=== PATIENT | female | born 1960 | race Hispanic/Latino ===

== ENCOUNTER 2023-01-28 06:50 | Day surgery (SDC) | payer BC ==
[2023-01-26 08:57] LABS: Potassium 3.7 mEq/L (3.5-5.1)
--- NOTE | 2023-01-27 15:17 | EKG ---
Test Date: 2023-01-26 Test Time: 09:15:25 Account General Manager: [place] MEASUREMENT RESULTS: Intervals: Rate: 71 FL: 168 QRSD: 74 QT: 430 QTc: 467 [place]: P: 56 FL: 168 QRS: 51 T: 64 INTERPRETIVE STATEMENTS: Normal sinus rhythm Low voltage QRS Borderline ECG No previous ECG available for comparison Electronically Signed On 01-27-23 15:12:31 INFORMATION MANAGEMENT OFFICER by Partha Alford
[2023-01-28] MEDS ORDERED: NA CHLORIDE 0.9% 1,000 ML ONE ×2 (07:04→13:40)
[2023-01-28] MEDS ORDERED: HYDROMORPHONE HCL 1 MG/ML INJ ONE (08:49)
[2023-01-28] MEDS ORDERED: KETOROLAC 30 MG/ML INJ ONE (10:55)
[2023-01-28] MEDS ORDERED: LIDOCAINE 2% MPF 5 ML VIAL ONE (10:55)
[2023-01-28] MEDS ORDERED: ONDANSETRON 4 MG/2 ML VIAL ONE ×2 (10:55→14:02)
[2023-01-28] MEDS ORDERED: propofoL 200 MG/20 ML VIAL IV ONE (10:55)
[2023-01-28] MEDS ORDERED: FENTANYL CITR 100 MCG/2 ML ONE (10:56)
[2023-01-28] MEDS ORDERED: MIDAZOLAM HCL 2 MG/2 ML INJ ONE (10:56)
[2023-01-28] MEDS: BUPIVACAINE 0.25% PF 30 ML VIAL ONE ×2 (10:58→11:40)
[2023-01-28] MEDS: CEFAZOLIN SODIUM 2 GM/VIAL ONE ×2 (10:58→11:25)
[2023-01-28] MEDS ORDERED: METHYLENE BLUE 1% 10 ML VIAL ONE (11:05)
--- NOTE | 2023-01-28 13:22 | P.OP ---
Preoperative diagnosis: RIGHT Breast Mass Postoperative diagnosis: RIGHT Breast Mass Primary procedure: Needle Localized RIGHT Breast Lumpectomy Anesthesia: GETA + Local Estimated blood loss: 20cc Specimen: Breast mass with wire, additional margins x 3 Findings: Clip not in specimen, wire taken out intact with rim of tissue Complications: None Transferred to: Recovery Room Condition: Good
[2023-01-28] MEDS: HYDROMORPHONE HCL 1 MG/ML INJ ONE ×2 (13:40→13:45)
[2023-01-28] MEDS ORDERED: DIPHENHYDRAMINE 50 MG/ML VIAL ONE (14:23)
--- NOTE | 2023-01-28 15:16 | OP ---
Date of Procedure: 01/28/2023 Surgeon: Fransisco Burrows MD, Preoperative Diagnosis: Right breast mass. Postoperative Diagnosis: Right breast mass. Procedure Performed: Needle localized right breast lumpectomy. Anesthesia: General endotracheal plus local, 0.25% Marcaine. Estimated Blood Loss: 20 cc. Specimen: Breast mass with wire. Additional margins specimen x3. Findings: Clip not seen in specimen, wire taken out with intact rim of tissue that did not contain s pecimen. Additional margins did not have specimen clip present. Complications: None immediate. Patient transferred to Recovery room in good condition. Brief History Of Present Illness: Patient is a 62-year-old woman, who had a history of a 1.1 cm mass at the 8 o'clock position 3 cm from the nipple in the right breast determined by ultrasound and radi ology. She had a biopsy performed, which did not show any malignancy evident at that point. It was read as BI-RADS 3 on the initial reports. The patient's impression was officially mass in the right breast is probably benign on the prior to any biopsies being performed of the area. She had an addit ional update imaging, which was officially read as upon further review, stable mass in left breast is benign and tissue was read as BI-RADS category 2 benign on 08/11/2021. Patient continued to have wo rry and concern over this lesion and requested its excision due to the possibility of malignancy. I had reiterated that there is no evidence of malignancy and that a routine followup was recommended; h owever, the patient continued to have great concerns and felt that she could not feel comfortable whi le she had this mass in her breast and therefore, requested surgical excision of this for definitive diagnosis as well. She additionally stated that she understood the risks of the procedure could invo lve deformity of the breast and other possible issues with the breast. Even understands this is in f act a benign lesion. She ultimately had a fiducial marker placed at an outside facility. As such, I have ordered the patient to have a needle localized lumpectomy/partial mastectomy of this lesion. T herefore, our radiologist, Dr. Kelly placed a needle into the breast, which was described as 0.5 cm bey ond the fiducial marker clip placed by the radiologist at the outside facility. As such, the patient was seen, talked to in preop area, and prepared for surgery. She understood the risks, benefits, an d alternatives and agreed to proceed. Procedure In Detail: After informed consent was obtained, patient was prepped and draped in the usua l sterile fashion. After adequate anesthesia was achieved, I made a linear incision on the right adalgisa ast at approximately 8 o'clock position, where a wire was evident including a small ellipse of skin a round this lesion for approximately 2.5 cm in size. I then dissected down in the subcutaneous plane. I then performed a conical enlarging incision as I went down to the chest wall including the wire a nd its distal aspect. I took it out with a rim of tissue and wire manipulation was minimal at this p oint. I extended it all the way to the level of approximately 0.5 cm beyond the clip and wire. I th en placed marking suture short superior, long lateral on the specimen and inked the deep margin and s ent it to Faxitron for examination by the Radiology Department to ensure the fiducial marker was pres ent. Upon discussion with the radiologist, the fiducial marker was not seen and I assume that perhap s there may be a malpositioning of the wire at the time of placement. Therefore, I proceeded to take 3 additional rims of tissue almost producing a quadrantectomy-type position in the 8 o'clock positio n, taken out this tissue extending for approximately 1 cm from the nipple down to a more triangular p yramidal shape to the chest wall. These 3 additional specimens were sent also with ink markings and short superior, long lateral sutures for orientation and they were sent off for Faxitron, also which did not show fiducial marker. At this point, I felt that I had removed an adequate amount of tissue and as this was a benign process, I opted not to continue taking an additional specimen at this point . As the wire was not apparently in the vicinity of the fiducial marker, opted to irrigate the area and closed the deep planes with interrupted 3-0 Vicryl suture and the skin was closed with a 4-0 [place] cry[place] in a running fashion. Dermabond placed over top. The patient tolerated the procedure well with out evidence of complication, was transferred to PACU in good condition. All counts were correct at the end of the case. The patient will have followup imaging and mammography at 3-6 months to ensure that there is no evidence of malignancy at this point; if there is, however, changes or concerning fi ndings on mammography at this point, we will consider additional imaging modalities and perhaps have the patient brought back if there is concern for malignancy for additional biopsies and/or possible s urgical discussion going forward. I have explained this to the patient's and he agrees to pr oceed as indicated as well and the patient did well after surgery. She will follow up with me in cli kat. LIAM/TRAV Voice ID: [id number] Report ID: [id number]
[2023-01-28 15:29] VITALS: BP 110/69; TEMP 98; O2SAT 98
--- NOTE | 2023-02-04 11:07 | RAD REPORT ---
EXAM DESCRIPTION: US - Brst,Preop NL Wire Init w/Guid - 01/28/2023 8:25 am CLINICAL HISTORY: Right breast lesion FINDINGS: The skin, subcutaneous tissues and breast tissue were anesthetized with lidocaine. Under sonographic guidance a Kopan's hook wire was placed at the location of the biopsy clip in the r ight breast at 8 o'clock. The patient then left for the surgical department IMPRESSION: Ultrasound-guided needle wire localization of the right breast biopsy biopsy clip at 8 o 'clock. ResultCode: S
== END 2023-01-28 15:25 | disposition home or self-care (01) ==
LOC: OR 06:50
PROVIDERS: ATTEND Surgery
PROC: 0HBT0ZZ Excision of Right Breast, Open Approach (ICD-10-PCS; principal; 2023-01-28 12:45)
DX: D24.1 Benign neoplasm of right breast (principal); F41.9 Anxiety disorder, unspecified; I10 Essential (primary) hypertension; E78.00 Pure hypercholesterolemia, unspecified; L90.5 Scar conditions and fibrosis of skin
CPT/HCPCS: 19301; 93005; 80048; 36415; 82947; 88305; 76098 ×2; 19285; J2704; J1200; J2001; J2250; J3010; J1170 ×2; J2405 ×2; J7030 ×2